=== PATIENT | female | born 1975 | race Caucasian/White ===

== ENCOUNTER 2020-08-14 19:10 | Emergency (ER) | payer OTHER ==
[~2020-08-14] VITALS: Ht 167.6 cm; Wt 83.9 kg
[2020-08-14 19:19] VITALS: BP_SYST 127
--- NOTE | 2020-08-14 19:28 | NUR ---
patient bib from home ambulatory c/o of bump to mid sternum x 2 weeks that has progressively worsen in the last 2 days. pain 3/10.
--- NOTE | 2020-08-14 19:37 | NUR ---
ER Dr. PILLAI at bedside examining patient.
--- NOTE | 2020-08-14 19:52 | NUR ---
Patient given written and verbal discharge instructions and verbalizes understanding. ER MD discussed with patient the results and treatment provided. Patient in stable condition. ID arm band removed. Rx of BENZOYL PEROXIDE given. Patient educated on pain management and to follow up with PMD. Pain Scale 3/10. Opportunity for questions provided and answered. Medication side effect fact sheet provided.
[2020-08-14 20:02] VITALS: BP_SYST 128
== END 2020-08-14 19:52 | disposition home or self-care (01) ==
LOC: SED 19:10
DX: L73.8 Other specified follicular disorders (principal); J45.909 Unspecified asthma, uncomplicated; Z90.710 Acquired absence of both cervix and uterus
CPT/HCPCS: 99282